=== PATIENT | female | born 1960 | race Caucasian/White ===

== ENCOUNTER 2017-02-18 08:56 | Day surgery (SDC) | payer OTHER ==
[2017-02-18] MEDS ORDERED: Lactated Ringer's 500 ML IV ONE (09:09)
[2017-02-18] MEDS ORDERED: Propofol 10 mg/ml Inj (20 ML) ONE (10:21)
[2017-02-18] MEDS ORDERED: Lidocaine 2% MPF (5 ml) Inj ONE (10:21)
[2017-02-18 11:27] VITALS: RESP 18
[2017-02-18 11:43] VITALS: BP 118/74; PULSE 62; TEMP 97.5; O2SAT 99
== END 2017-02-18 13:55 | disposition home or self-care (01) ==
LOC: H.ENDO 08:56
PROVIDERS: ATTEND Internal Medicine Gastroenterology
DX: Z12.11 Encounter for screening for malignant neoplasm of colon (principal); I10 Essential (primary) hypertension; J45.909 Unspecified asthma, uncomplicated; D12.5 Benign neoplasm of sigmoid colon; K55.20 Angiodysplasia of colon without hemorrhage; K57.30 Diverticulosis of large intestine without perforation or abscess without bleeding
CPT/HCPCS: 45380; 88305; J2704; J7120

== ENCOUNTER 2018-07-21 21:21 | Emergency (ER) | payer OTHER ==
[2018-07-21 21:49] VITALS: BP 152/83; PULSE 78; RESP 16; TEMP 98.2; O2SAT 98
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
--- NOTE | 2018-07-22 08:30 | RAD ---
Date of service: 07/21/2018 PROCEDURE: Radiographs of the Lumbar Spine. HISTORY: work injury COMPARISON: No prior. TECHNIQUE: 5 views obtained. FINDINGS: BONES: Normal alignment. No listhesis. No lumbar fracture. Anterior angulation of the coccyx incidentally may be a chronic finding. Fracture appears difficult to completely exclude. DISC SPACES: There is advanced multilevel lumbar spondylosis appreciated diffusely but affecting the upper and mid lumbar levels as well as the thoracolumbar junction more so than inferior levels. No prominent disc height loss appreciable. OTHER FINDINGS: None. IMPRESSION: Multilevel degenerative disease seen predominantly upper and mid levels and less advanced at inferior levels without fracture or spondylolisthesis. Anterior angulation of the coccyx may be a chronic feature with acute subacute fracture difficult to exclude here though this is not the point of imaging by request. Clinically correlate further.
== END 2018-07-21 22:59 | disposition home or self-care (01) ==
LOC: H.ER 21:21
DX: M54.5 Low back pain (principal); S76.312A Strain of muscle, fascia and tendon of the posterior muscle group at thigh level, left thigh, initial encounter; X50.9XXA Other and unspecified overexertion or strenuous movements or postures, initial encounter; Y99.0 Civilian activity done for income or pay; E78.00 Pure hypercholesterolemia, unspecified; F17.200 Nicotine dependence, unspecified, uncomplicated; I10 Essential (primary) hypertension; M51.36 Other intervertebral disc degeneration, lumbar region; Z87.19 Personal history of other diseases of the digestive system
CPT/HCPCS: 72114; 96372; 99283; J1885